=== PATIENT | female | born 1985 | race Caucasian/White ===

== ENCOUNTER 2018-02-26 19:00 | Emergency (ER) | payer MEDICAID ==
[~2018-02-26] VITALS: Ht 157.5 cm; Wt 61.4 kg
[~2018-02-26 19:00] MED LIST: DULO30CA2 PO; TRAZ-147 PO
[2018-02-26 21:58] VITALS: BP 115/88
[2018-02-26] MEDS ORDERED: ChlordiazePOXIDE HCL 25 MG CAPSULE PO ONE (23:30)
[2018-02-26] MEDS ORDERED: ONDANSETRON HCL 4 MG TABLET PO ONE (23:30)
== END 2018-02-26 23:57 | disposition home or self-care (01) ==
LOC: EMS 19:02
DX: F11.23 Opioid dependence with withdrawal (principal); F17.210 Nicotine dependence, cigarettes, uncomplicated; R19.7 Diarrhea, unspecified; R11.0 Nausea
CPT/HCPCS: 99283; 99406; Q0162

== ENCOUNTER 2018-02-27 10:12 | Inpatient (IN) | payer MEDICAID ==
[~2018-02-27] VITALS: Ht 157.5 cm; Wt 61.1 kg
[2018-02-27] MEDS ORDERED: LORazepam 2 MG TABLET PO ONE (16:45)
[2018-02-27 16:47] LABS: BASOPHILS % (AUTO) 0.4 % (0.0-2.0); EOSINOPHILS % (AUTO) 1.8 % (1.0-6.0); HEMATOCRIT 39.2 % (36-46); HEMOGLOBIN 13.5 g/dL (12.0-16.0); LYMPHOCYTES # (AUTO) 1.7 K/uL (1.0-4.8); LYMPHOCYTES % (AUTO) 22.1 % (22.0-44.0); MEAN CORPUSCULAR HEMOGLOBIN 31.2 pg (26.0-34.0); MEAN CORPUSCULAR HGB CONC 34.6 G/dL (31.0-37.0); MEAN CORPUSCULAR VOLUME 90 fL (80-100); MONOCYTES # (AUTO) 0.6 K/uL (0.1-1.0); MONOCYTES % (AUTO) 8.5 % (2.0-9.0); NEUTROPHILS # (AUTO) 5.1 K/uL (1.8-7.7); NEUTROPHILS % (AUTO) 67.2 % (40.0-70.0); PLATELET COUNT (AUTO) 466 K/uL (150-450); RED BLOOD CELL COUNT(AUTO) 4.34 MIL/uL (4.00-5.20); RED CELL DISTRIBUTION WIDTH 13.3 % (11.5-14.5)
[2018-02-27 17:11] LABS: ANION GAP 9 mmol/L (8-16); CALCIUM, TOTAL 9.1 mg/dL (8.8-10.5); CARBON DIOXIDE 26 mmol/L (22-29); CHLORIDE 105 mmol/L (98-107); CREATININE 0.83 mg/dL (0.60-1.30); GLOMERULAR FILTR. RATE CALC > 60 mL/min (>60); GLUCOSE,RANDOM 106 mg/dL (70-110); POTASSIUM 4.2 mmol/L (3.5-5.1); SODIUM SERUM 140 mmol/L (136-145); UREA NITROGEN, BLOOD 12 mg/dL (7-18)
[2018-02-27 17:17] LABS: ALANINE AMINOTRANSFERASE 23 U/L (12-78); ALBUMIN 3.8 g/dL (3.4-5.0); ALKALINE PHOSPHATASE 79 U/L (46-116); ASPARTATE AMINOTRANSFERASE 18 U/L (15-37); BILIRUBIN,TOTAL 0.2 mg/dL (0.1-1.0); TOTAL PROTEIN, SERUM 8.2 g/dL (6.4-8.2)
[2018-02-27] MEDS ORDERED: HydrOXYzine PAMOATE 50 MG CAPSULE PO PRN ×2 (17:30)
[2018-02-27] MEDS ORDERED: QUEtiapine FUMARATE 100 MG TABLET PO PRN (17:30)
[2018-02-27] MEDS ORDERED: MAG HYDROX/AL HYDROX/SIMETH ES 30 ML SUSPENSION UDCUP PO PRN ×2 (17:30)
[2018-02-27] MEDS ORDERED: ACETAMINOPHEN 325 MG TABLET PO PRN (17:30)
[2018-02-27] MEDS ORDERED: MAGNESIUM HYDROXIDE SUSPENSION 30 ML UDCUP PO PRN (17:30)
[2018-02-27] MEDS ORDERED: CloNIDine HCL 0.1 MG TABLET PO PRN (17:30)
[2018-02-27] MEDS ORDERED: TUBERCULIN, PURIFIED PROTEIN DERIVATIVE 5 TU/0.1 ML SYG ID ONE (17:30)
[2018-02-27] MEDS ORDERED: GuaiFENesin/D-METHORPHAN [SUGAR-FREE] 200-20MG/10 ML SYRUP UDCUP PO PRN (17:30)
[2018-02-27] MEDS ORDERED: LOPERAMIDE HCL 2 MG CAPSULE PO PRN (17:30)
[2018-02-27] MEDS ORDERED: IBUPROFEN 600 MG TABLET PO PRN (17:30)
[2018-02-27] MEDS ORDERED: PROMETHAZINE HCL 25 MG TABLET PO PRN (17:30)
[2018-02-27] MEDS ORDERED: CYANOCOBALAMIN 1,000 MCG/ML VIAL IM ONE (17:30)
[2018-02-27 17:38] LABS: AMPHET/METH SCREEN,URINE NEGATIVE (NEGATIVE); BARBITURATE SCREEN, URINE NEGATIVE (NEGATIVE); BENZODIAZEPINES SCREEN,URINE POSITIVE (NEGATIVE); CANNABINOID SCREEN,URINE NEGATIVE (NEGATIVE); COCAINE SCREEN,URINE NEGATIVE (NEGATIVE); METHADONE SCREEN, URINE NEGATIVE (NEGATIVE); OPIATE SCREEN,URINE NEGATIVE (NEGATIVE)
[2018-02-27 17:39] LABS: PHENCYCLIDINE SCREEN,URINE NEGATIVE (NEGATIVE)
[2018-02-27 17:47] LABS: APPEARANCE,URINE CLEAR (CLEAR); BILIRUBIN,URINE NEGATIVE (NEGATIVE); GLUCOSE, URINE (UA) NEGATIVE (NEGATIVE); KETONES,URINE TRACE mg/dL (NEGATIVE); OCCULT BLOOD,URINE NEGATIVE (NEGATIVE); PROTEIN,URINE NEGATIVE (NEGATIVE); UROBILINOGEN,URINE 0.2 mg/dL (<=1.0)
[2018-02-27 17:48] LABS: LEUKOCYTE ESTERASE ,URINE NEGATIVE (NEGATIVE); NITRATE,URINE NEGATIVE (NEGATIVE)
[2018-02-27 17:54] LABS: HCG,QUANTITATIVE < 1 mIU/mL (0-6)
[2018-02-27] MEDS: THIAMINE HCL 100 MG TABLET PO SCH (21:00)
[2018-02-27] MEDS: CloNIDine HCL 0.1 MG TABLET PO SCH (22:00)
[2018-02-27] MEDS: ZOLPIDEM TARTRATE 10 MG TABLET PO PRN (23:27)
[2018-02-28] VITALS (11 sets, daily range): BP systolic 100–118; BP diastolic 58–82
[2018-02-28] MEDS: CloNIDine HCL 0.1 MG TABLET PO SCH ×4 (06:37→20:58)
[2018-02-28] MEDS: LORazepam 2 MG TABLET PO PRN ×3 (07:11→17:46)
[2018-02-28] MEDS ORDERED: CYANOCOBALAMIN 1,000 MCG/ML VIAL IM ONE (07:15)
[2018-02-28 08:52] LABS: BASOPHILS % (AUTO) 0.6 % (0.0-2.0); EOSINOPHILS % (AUTO) 2.9 % (1.0-6.0); HEMATOCRIT 36.6 % (36-46); HEMOGLOBIN 12.7 g/dL (12.0-16.0); LYMPHOCYTES % (AUTO) 27.9 % (22.0-44.0); MEAN CORPUSCULAR HEMOGLOBIN 31.3 pg (26.0-34.0); MEAN CORPUSCULAR HGB CONC 34.6 G/dL (31.0-37.0); MEAN CORPUSCULAR VOLUME 91 fL (80-100); MONOCYTES # (AUTO) 0.5 K/uL (0.1-1.0); MONOCYTES % (AUTO) 6.7 % (2.0-9.0); NEUTROPHILS # (AUTO) 4.5 K/uL (1.8-7.7); NEUTROPHILS % (AUTO) 61.9 % (40.0-70.0); PLATELET COUNT (AUTO) 441 K/uL (150-450); RED BLOOD CELL COUNT(AUTO) 4.04 MIL/uL (4.00-5.20); RED CELL DISTRIBUTION WIDTH 13.5 % (11.5-14.5)
[2018-02-28 09:20] LABS: ALANINE AMINOTRANSFERASE 18 U/L (12-78); ALBUMIN 3.4 g/dL (3.4-5.0); ALKALINE PHOSPHATASE 64 U/L (46-116); ANION GAP 9 mmol/L (8-16); ASPARTATE AMINOTRANSFERASE 14 U/L (15-37); BILIRUBIN,TOTAL 0.2 mg/dL (0.1-1.0); CALCIUM, TOTAL 8.8 mg/dL (8.8-10.5); CARBON DIOXIDE 29 mmol/L (22-29); CHLORIDE 104 mmol/L (98-107); CHOL/HDL RATIO 3.7 (3.9-5.7); CHOLESTEROL 205 mg/dL (131-200); CREATININE 0.99 mg/dL (0.60-1.30); FREE T4 (FREE THYROXINE) 0.81 ng/dL (0.76-1.46); GLOMERULAR FILTR. RATE CALC > 60 mL/min (>60); GLUCOSE,RANDOM 143 mg/dL (70-110); HDL CHOLESTEROL 55 mg/dL (40-60); LDL CHOL (CALC.) 123 mg/dL (0-130); POTASSIUM 3.6 mmol/L (3.5-5.1); SODIUM SERUM 142 mmol/L (136-145); THYROID STIMULATING HORMONE 0.94 uIU/mL (0.36-3.74); TOTAL PROTEIN, SERUM 7.2 g/dL (6.4-8.2); TRIGLYCERIDES 136 mg/dL (15-150); UREA NITROGEN, BLOOD 17 mg/dL (7-18)
[2018-02-28] MEDS: MULTIVITAMINS WITH MINERALS, THERAPEUTIC TABLET PO SCH (09:32)
[2018-02-28] MEDS: THIAMINE HCL 100 MG TABLET PO SCH ×2 (09:32→17:46)
[2018-02-28] MEDS: FOLIC ACID 1 MG TABLET PO SCH (09:32)
[2018-02-28] MEDS: DULoxetine HCL 20 MG CAPSULE PO SCH (09:32)
[2018-02-28] MEDS: ZOLPIDEM TARTRATE 10 MG TABLET PO PRN (20:58)
[2018-02-28] MEDS ORDERED: PETROLATUM,WHITE 71 GM JELLY TP PRN (22:00)
[2018-02-28] MEDS ORDERED: ALBUTEROL SULFATE HFA 90 MCG/PUFF 8 GM INHALER IH PRN (22:00)
[2018-02-28] MEDS ORDERED: BACITRACIN 28.4 GM OINTMENT TP PRN (22:00)
[2018-02-28] MEDS ORDERED: BENZOCAINE/MENTHOL LOZENGE MM PRN (22:00)
[2018-02-28] MEDS ORDERED: ONDANSETRON HCL 4 MG TABLET PO PRN (22:00)
[2018-03-01] VITALS (7 sets, daily range): BP systolic 98–110; BP diastolic 56–66
[2018-03-01] MEDS: CloNIDine HCL 0.1 MG TABLET PO SCH ×4 (06:00→21:44)
[2018-03-01] MEDS: NALTREXONE HCL 50 MG TABLET PO SCH (08:40)
[2018-03-01] MEDS: LORazepam 2 MG TABLET PO PRN (08:40)
[2018-03-01] MEDS: OMEPRAZOLE 20 MG CAPSULE PO SCH (08:40)
[2018-03-01] MEDS: DULoxetine HCL 20 MG CAPSULE PO SCH (08:40)
[2018-03-01] MEDS: FOLIC ACID 1 MG TABLET PO SCH (08:40)
[2018-03-01] MEDS: MULTIVITAMINS WITH MINERALS, THERAPEUTIC TABLET PO SCH (08:40)
[2018-03-01] MEDS: THIAMINE HCL 100 MG TABLET PO SCH ×2 (08:40→17:12)
[2018-03-01] MEDS: DOCUSATE SODIUM 100 MG CAPSULE PO SCH (08:40)
[2018-03-01 09:38] LABS: HEMATOCRIT 34.8 % (36-46); HEMOGLOBIN 12.1 g/dL (12.0-16.0); MEAN CORPUSCULAR HEMOGLOBIN 31.2 pg (26.0-34.0); MEAN CORPUSCULAR HGB CONC 34.7 G/dL (31.0-37.0); MEAN CORPUSCULAR VOLUME 90 fL (80-100); PLATELET COUNT (AUTO) 400 K/uL (150-450); RED BLOOD CELL COUNT(AUTO) 3.87 MIL/uL (4.00-5.20)
[2018-03-01 10:11] LABS: ANION GAP 6 mmol/L (8-16); CALCIUM, TOTAL 8.3 mg/dL (8.8-10.5); CARBON DIOXIDE 29 mmol/L (22-29); CHLORIDE 104 mmol/L (98-107); CREATININE 0.84 mg/dL (0.60-1.30); GLOMERULAR FILTR. RATE CALC > 60 mL/min (>60); GLUCOSE,RANDOM 86 mg/dL (70-110); PHOSPHORUS 4.3 mg/dL (2.5-4.9); POTASSIUM 3.8 mmol/L (3.5-5.1); SODIUM SERUM 139 mmol/L (136-145); UREA NITROGEN, BLOOD 13 mg/dL (7-18)
[2018-03-01 10:14] LABS: BAND NEUTROPHILS % (MANUAL) 1 % (0-5); EOSINOPHILS % (MANUAL) 1 % (1-6); LYMPHOCYTES % (MANUAL) 18 % (22-44); MONOCYTES % (MANUAL) 8 % (2-9); SEGMENTED NEUTROPHILS % 72 % (40-70)
[2018-03-01] MEDS: GABAPENTIN 100 MG CAPSULE PO SCH (20:58)
[2018-03-02 05:55] VITALS: BP 104/54
[2018-03-02] MEDS: CloNIDine HCL 0.1 MG TABLET PO SCH ×4 (06:00→21:09)
[2018-03-02 08:44] VITALS: BP 116/66
[2018-03-02] MEDS: MULTIVITAMINS WITH MINERALS, THERAPEUTIC TABLET PO SCH (08:47)
[2018-03-02] MEDS: THIAMINE HCL 100 MG TABLET PO SCH ×2 (08:47→16:37)
[2018-03-02] MEDS: NALTREXONE HCL 50 MG TABLET PO SCH (08:47)
[2018-03-02] MEDS: CHOLECALCIFEROL (VIT D3) 1,000 UNITS TABLET PO SCH (08:48)
[2018-03-02] MEDS: MAGNESIUM OXIDE 400 MG TABLET PO SCH ×2 (08:48→16:37)
[2018-03-02] MEDS: OMEPRAZOLE 20 MG CAPSULE PO SCH (08:48)
[2018-03-02] MEDS: DOCUSATE SODIUM 100 MG CAPSULE PO SCH (08:48)
[2018-03-02] MEDS: GABAPENTIN 100 MG CAPSULE PO SCH ×4 (08:48→20:41)
[2018-03-02] MEDS: FOLIC ACID 1 MG TABLET PO SCH (08:48)
[2018-03-02] MEDS: LORazepam 2 MG TABLET PO PRN (08:48)
[2018-03-02] MEDS ORDERED: DULoxetine HCL 30 MG CAPSULE PO SCH (09:00)
[2018-03-02 12:38] VITALS: BP 106/69
[2018-03-02 16:28] VITALS: BP 109/69
[2018-03-02] MEDS ORDERED: LOPERAMIDE HCL 2 MG CAPSULE PO PRN (17:30)
[2018-03-02 18:26] VITALS: BP 101/72
[2018-03-02 20:30] VITALS: BP 111/66
[2018-03-03] MEDS: CloNIDine HCL 0.1 MG TABLET PO SCH ×4 (06:52→20:51)
[2018-03-03 07:00] VITALS: BP 99/67
[2018-03-03 08:22] VITALS: BP 100/55
[2018-03-03] MEDS: DOCUSATE SODIUM 100 MG CAPSULE PO SCH (08:41)
[2018-03-03] MEDS: OMEPRAZOLE 20 MG CAPSULE PO SCH (08:41)
[2018-03-03] MEDS: CHOLECALCIFEROL (VIT D3) 1,000 UNITS TABLET PO SCH (08:41)
[2018-03-03] MEDS: THIAMINE HCL 100 MG TABLET PO SCH ×2 (08:41→17:20)
[2018-03-03] MEDS: NALTREXONE HCL 50 MG TABLET PO SCH (08:41)
[2018-03-03] MEDS: FOLIC ACID 1 MG TABLET PO SCH (08:41)
[2018-03-03] MEDS: MULTIVITAMINS WITH MINERALS, THERAPEUTIC TABLET PO SCH (08:41)
[2018-03-03] MEDS: DULoxetine HCL 30 MG CAPSULE PO SCH (08:41)
[2018-03-03] MEDS: MAGNESIUM OXIDE 400 MG TABLET PO SCH ×2 (08:41→17:20)
[2018-03-03] MEDS: GABAPENTIN 100 MG CAPSULE PO SCH ×2 (08:42→12:29)
[2018-03-03 09:47] VITALS: BP 108/65
[2018-03-03 16:00] VITALS: BP 100/58
[2018-03-03] MEDS: GABAPENTIN 300 MG CAPSULE PO SCH ×2 (17:22→20:54)
[2018-03-03 20:50] VITALS: BP 108/68
[2018-03-04 06:46] VITALS: BP 112/66
[2018-03-04 06:47] VITALS: BP 114/66
[2018-03-04] MEDS: CloNIDine HCL 0.1 MG TABLET PO SCH ×4 (06:48→22:12)
[2018-03-04 08:29] VITALS: BP 101/58
[2018-03-04] MEDS: FOLIC ACID 1 MG TABLET PO SCH (09:22)
[2018-03-04] MEDS: CHOLECALCIFEROL (VIT D3) 1,000 UNITS TABLET PO SCH (09:22)
[2018-03-04] MEDS: GABAPENTIN 300 MG CAPSULE PO SCH ×4 (09:23→21:04)
[2018-03-04] MEDS: DULoxetine HCL 30 MG CAPSULE PO SCH (09:23)
[2018-03-04] MEDS: MAGNESIUM OXIDE 400 MG TABLET PO SCH ×2 (09:23→17:46)
[2018-03-04] MEDS: DOCUSATE SODIUM 100 MG CAPSULE PO SCH (09:23)
[2018-03-04] MEDS: MULTIVITAMINS WITH MINERALS, THERAPEUTIC TABLET PO SCH (09:23)
[2018-03-04] MEDS: NALTREXONE HCL 50 MG TABLET PO SCH (09:23)
[2018-03-04] MEDS: OMEPRAZOLE 20 MG CAPSULE PO SCH (09:23)
[2018-03-04] MEDS: THIAMINE HCL 100 MG TABLET PO SCH ×2 (09:42→17:46)
[2018-03-04 12:40] VITALS: BP 106/66
[2018-03-04 13:05] VITALS: BP 110/68
[2018-03-04 16:37] VITALS: BP 100/62
[2018-03-05] VITALS (7 sets, daily range): BP systolic 100–110; BP diastolic 59–69
[2018-03-05] MEDS: CloNIDine HCL 0.1 MG TABLET PO SCH ×4 (06:00→21:41)
[2018-03-05] MEDS: FOLIC ACID 1 MG TABLET PO SCH (08:18)
[2018-03-05] MEDS: OMEPRAZOLE 20 MG CAPSULE PO SCH (08:18)
[2018-03-05] MEDS: NALTREXONE HCL 50 MG TABLET PO SCH (08:18)
[2018-03-05] MEDS: THIAMINE HCL 100 MG TABLET PO SCH ×2 (08:18→16:45)
[2018-03-05] MEDS: DOCUSATE SODIUM 100 MG CAPSULE PO SCH (08:18)
[2018-03-05] MEDS: MAGNESIUM OXIDE 400 MG TABLET PO SCH ×2 (08:18→16:45)
[2018-03-05] MEDS: MULTIVITAMINS WITH MINERALS, THERAPEUTIC TABLET PO SCH (08:18)
[2018-03-05] MEDS: CHOLECALCIFEROL (VIT D3) 1,000 UNITS TABLET PO SCH (08:18)
[2018-03-05] MEDS: GABAPENTIN 300 MG CAPSULE PO SCH ×4 (08:18→20:50)
[2018-03-05] MEDS: LORazepam 2 MG TABLET PO PRN ×2 (08:19→17:56)
[2018-03-05] MEDS: DULoxetine HCL 30 MG CAPSULE PO SCH (08:19)
[2018-03-05] MEDS: ZOLPIDEM TARTRATE 10 MG TABLET PO PRN (22:04)
[2018-03-06 06:27] VITALS: BP 109/65
[2018-03-06] MEDS: CloNIDine HCL 0.1 MG TABLET PO SCH ×4 (06:30→20:23)
[2018-03-06 07:52] LABS: BASOPHILS % (AUTO) 0.6 % (0.0-2.0); EOSINOPHILS % (AUTO) 1.8 % (1.0-6.0); HEMATOCRIT 37.9 % (36-46); HEMOGLOBIN 13.1 g/dL (12.0-16.0); LYMPHOCYTES # (AUTO) 1.6 K/uL (1.0-4.8); LYMPHOCYTES % (AUTO) 23.5 % (22.0-44.0); MEAN CORPUSCULAR HEMOGLOBIN 31.4 pg (26.0-34.0); MEAN CORPUSCULAR HGB CONC 34.5 G/dL (31.0-37.0); MEAN CORPUSCULAR VOLUME 91 fL (80-100); MONOCYTES # (AUTO) 0.5 K/uL (0.1-1.0); MONOCYTES % (AUTO) 7.1 % (2.0-9.0); NEUTROPHILS # (AUTO) 4.6 K/uL (1.8-7.7); PLATELET COUNT (AUTO) 433 K/uL (150-450); RED BLOOD CELL COUNT(AUTO) 4.17 MIL/uL (4.00-5.20); RED CELL DISTRIBUTION WIDTH 13.1 % (11.5-14.5)
[2018-03-06 08:15] VITALS: BP 121/68
[2018-03-06] MEDS: GABAPENTIN 300 MG CAPSULE PO SCH ×4 (08:21→20:22)
[2018-03-06] MEDS: DULoxetine HCL 30 MG CAPSULE PO SCH (08:23)
[2018-03-06] MEDS: THIAMINE HCL 100 MG TABLET PO SCH ×2 (08:23→16:09)
[2018-03-06] MEDS: OMEPRAZOLE 20 MG CAPSULE PO SCH (08:24)
[2018-03-06] MEDS: MULTIVITAMINS WITH MINERALS, THERAPEUTIC TABLET PO SCH (08:24)
[2018-03-06] MEDS: NALTREXONE HCL 50 MG TABLET PO SCH (08:24)
[2018-03-06] MEDS: FOLIC ACID 1 MG TABLET PO SCH (08:24)
[2018-03-06] MEDS: MAGNESIUM OXIDE 400 MG TABLET PO SCH ×2 (08:25→16:09)
[2018-03-06] MEDS: CHOLECALCIFEROL (VIT D3) 1,000 UNITS TABLET PO SCH (08:25)
[2018-03-06] MEDS: DOCUSATE SODIUM 100 MG CAPSULE PO SCH (08:25)
[2018-03-06] MEDS: LORazepam 2 MG TABLET PO PRN ×2 (08:46→17:19)
[2018-03-06 12:48] VITALS: BP 105/66
[2018-03-06 16:05] VITALS: BP 102/62
[2018-03-06 17:19] VITALS: BP 111/71
[2018-03-06 20:22] VITALS: BP 104/81
[2018-03-07 06:00] VITALS: BP 101/59
[2018-03-07] MEDS: CloNIDine HCL 0.1 MG TABLET PO SCH (06:00)
[2018-03-07] MEDS: LORazepam 2 MG TABLET PO PRN (08:33)
[2018-03-07] MEDS: GABAPENTIN 300 MG CAPSULE PO SCH ×3 (08:34→17:00)
[2018-03-07] MEDS: FOLIC ACID 1 MG TABLET PO SCH (08:34)
[2018-03-07] MEDS: THIAMINE HCL 100 MG TABLET PO SCH ×2 (08:34→17:00)
[2018-03-07] MEDS: DULoxetine HCL 30 MG CAPSULE PO SCH (08:34)
[2018-03-07] MEDS: CHOLECALCIFEROL (VIT D3) 1,000 UNITS TABLET PO SCH (08:34)
[2018-03-07] MEDS: DOCUSATE SODIUM 100 MG CAPSULE PO SCH (08:34)
[2018-03-07] MEDS: NALTREXONE HCL 50 MG TABLET PO SCH (08:34)
[2018-03-07] MEDS: OMEPRAZOLE 20 MG CAPSULE PO SCH (08:34)
[2018-03-07] MEDS: MAGNESIUM OXIDE 400 MG TABLET PO SCH ×2 (08:34→17:01)
[2018-03-07] MEDS: MULTIVITAMINS WITH MINERALS, THERAPEUTIC TABLET PO SCH (08:34)
[2018-03-07 08:51] VITALS: BP 106/60
[2018-03-07] MEDS ORDERED: DULO30CA2 PO (09:26)
[2018-03-07] MEDS ORDERED: NALT50TA PO (09:26)
[2018-03-07] MEDS ORDERED: GABA-531 PO (09:26)
[2018-03-07] MEDS ORDERED: OMEP20 PO (16:40)
[2018-03-07] MEDS ORDERED: DSS100 PO (16:40)
[2018-03-07] MEDS ORDERED: MAGOX PO (16:40)
[2018-03-07] MEDS ORDERED: VITAD1000 PO (16:41)
[2018-03-07 16:59] VITALS: BP 110/75
== END 2018-03-07 17:35 | disposition home or self-care (01) | DRG 751 ==
LOC: EMS 10:13 → B3A 21:41
PROVIDERS: ADMIT Psychiatry & Neurology Psychiatry; ATTEND Psychiatry & Neurology Psychiatry
DX: F33.2 Major depressive disorder, recurrent severe without psychotic features (principal); R45.851 Suicidal ideations; E83.42 Hypomagnesemia; F23 Brief psychotic disorder; E83.51 Hypocalcemia; F17.210 Nicotine dependence, cigarettes, uncomplicated; F11.90 Opioid use, unspecified, uncomplicated; F41.9 Anxiety disorder, unspecified; G47.00 Insomnia, unspecified; F12.90 Cannabis use, unspecified, uncomplicated; Z91.19 Patient's noncompliance with other medical treatment and regimen; Z71.6 Tobacco abuse counseling; Z56.0 Unemployment, unspecified
CPT/HCPCS: 71046; 82306; 83036; 83735; 84100; 84439; 84443; 85007; 85014; 86592; 99285; G0480; J3420